=== PATIENT | male | born 1980 | race Hispanic/Latino ===

== ENCOUNTER 2020-08-23 11:54 | Emergency (ER) | payer OTHER ==
[~2020-08-23] VITALS: Ht 167.6 cm; Wt 82.0 kg
[2020-08-23] MEDS ORDERED: KEFLEX500 M1 PO (12:29)
[2020-08-23 12:50] VITALS: BP 118/67
== END 2020-08-23 12:50 | disposition home or self-care (01) | DRG 603 ==
LOC: ED 11:54
DX: L02.11 Cutaneous abscess of neck (principal); F17.210 Nicotine dependence, cigarettes, uncomplicated